=== PATIENT | male | born 2000 | race American Indian/Alaskan Native ===

== ENCOUNTER 2021-07-09 20:10 | Emergency (ER) | payer OTHER ==
[2021-07-09 21:12] VITALS: BP 134/77
[2021-07-09] MEDS ORDERED: TETRACAINE 0.5% OPHTH SOLN 4ML OU STA (21:51)
--- NOTE | 2021-07-09 22:16 | Emergency Department Report ---
ED Eye Problem HPI - General Chief complaint: Eye Problems Stated complaint: LEFT EYE Time Seen by Provider: 07/09/21 21:41 Source: patient Mode of arrival: Ambulatory Limitations: No Limitations - History of Present Illness Initial comments: Chief complaint: Pinkeye left eye irritation HPI: This is a 20-year-old female who wears contact lenses who presents with pink eye of the left irritation. She slept in her contacts. She changes her contact every 3 months. Her compounder helper is located at [facility] chief complaint: eye pain, eye redness -: Gradual, This morning (Awakened this morning with pinkeye irritation) Location: left eye Severity: moderate If Pain, Quality: burning Consistency: constant Context: contact lens use - Related Data Previous Rx's Medication Instructions Recorded Last Taken Type Ciprofloxacin HCl 10 ml OS Q2H #1 bottle 07/09/21 Unknown Rx HYDROcodone/APAP 5-325 [[place] 1 each PO Q6HR PRN #10 tablet 07/09/21 Unknown Rx 5/325] Ibuprofen [Motrin 400 MG tab] 400 mg PO Q8H PRN #20 tablet 07/09/21 Unknown Rx Allergies Allergy/AdvReac Type Severity Reaction Status Date / Time No Known Allergies Allergy Verified 07/09/21 21:53 ED Review of Systems ROS: Stated complaint: LEFT EYE Other details as noted in HPI Constitutional: denies: fever Respiratory: denies: cough, shortness of breath ED Past Medical Hx - Past Medical History Previous Medical History?: No - Surgical History Past Surgical History?: No - Social History Smoking Status: Never Smoker Substance Use Type: None - Medications Home Medications: Home Medications Medication Instructions Recorded Confirmed Last Taken Type Ciprofloxacin HCl 10 ml OS Q2H #1 bottle 07/09/21 Unknown Rx HYDROcodone/APAP 5-325 [[place] 1 each PO Q6HR PRN #10 tablet 07/09/21 Unknown Rx 5/325] Ibuprofen [Motrin 400 MG tab] 400 mg PO Q8H PRN #20 tablet 07/09/21 Unknown Rx ED Physical Exam - General Limitations: No Limitations General appearance: alert, in no apparent distress - Head Head exam: Present: atraumatic, normocephalic - Eye Eye exam: Absent: periorbital swelling, periorbital tenderness - Expanded Eye Exam Expanded Eyelids: Normal Inspection: Left Pupils: Regular, Round: Left, Reactive: Left Sclera/Conjunctival: Injection: Left Anterior chamber: Hyphema: Left (No hyphema) - Neurological Exam Neurological exam: Present: alert, oriented X3, normal gait - Psychiatric Psychiatric exam: Present: normal affect, normal mood ED Course Vital Signs 07/09/21 21:06 Temperature 98.6 F Pulse Rate 85 Respiratory 16 Rate Blood Pressure 134/77 O2 Sat by Pulse 99 Oximetry ED Medical Decision Making - Medical Decision Making Corneal abrasion: Acute left conjunctivitis, corneal abrasion left, referred to compounder helper. Prescriptions for ibuprofen, [place], ciprofloxacin drops. Critical care attestation.: If time is entered above; I have spent that time in minutes in the direct care of this critically ill patient, excluding procedure time. ED Disposition Clinical Impression: Acute conjunctivitis of left eye, Corneal abrasion of left eye due to contact lens Disposition: 01 HOME / SELF CARE / HOMELESS Is pt being admited?: No Does the pt Need Aspirin: No Condition: Stable Instructions: Corneal Abrasion, Bacterial Conjunctivitis, Adult, [id number], How to Use Eye Drops and Eye Ointments Prescriptions: Ciprofloxacin HCl 10 ml OS Q2H #1 bottle Ibuprofen [Motrin 400 MG tab] 400 mg PO Q8H PRN #20 tablet PRN Reason: Pain , Severe (7-10) HYDROcodone/APAP 5-325 [[place] 5/325] 1 each PO Q6HR PRN #10 tablet PRN Reason: Pain Referrals: [facility] [Provider Group] - 3-5 Days
== END 2021-07-09 23:05 | disposition home or self-care (01) ==
LOC: ED 20:10
DX: H18.822 Corneal disorder due to contact lens, left eye (principal); H10.32 Unspecified acute conjunctivitis, left eye
CPT/HCPCS: 99282